=== PATIENT | male | born 1940 | race Caucasian/White ===

== ENCOUNTER → 2016-06-21 | Outpatient (CLI) | payer OTHER, BC ==
[~2016-06-21] MED LIST: ALL300 PO; ASPEC325 PO; ATEN50TA PO; ATOR10TA88 PO; CALCTAB5 PO; COEN100C3; DOCU100C PO; GABA1CAP PO; GLC/500 PO; ISOS60TA25 PO; KLN1X PO; OMEP20TA PO; OXYC-106 PO; POLYDRO6 OPL; PRD/1 PO; SYN25 PO; TERA5CAP PO; [UNRECOGNIZED DRUG - SUPPLY] OPR
--- NOTE | 2016-06-21 11:24 | DIAGNOSTIC IMAGING REPORT ---
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 Maximum linear dimension of the right leg from the superior aspect of the wall of the right femoral prosthetic to the right ankle is 94.6 cm. A: Linear dimension of the left leg is 92.6 cm. Differential is 2 cm with left leg shorter than that of the right. Bulk of the differential is an femoral length discrepancy area in IMPRESSION: 1. leg length discrepancy with the left leg shorter than the right x 2 cm. 2. The bulk of the differential length is localized to the femur as discussed Electronically signed by: Eyad Loco M.D. 06/21/2016 11:22 AM Dictated Date/Time: 06/21/2016 11:17 AM
== END ==
LOC: C.RADBC 10:54
PROVIDERS: ATTEND Anesthesiology
DX: M21.70 Unequal limb length (acquired), unspecified site (principal); M54.5 Low back pain

== ENCOUNTER → 2016-08-24 | Outpatient (CLI) | payer OTHER, BC ==
[~2016-08-24] MED LIST changes: +ATOR10TA82 PO; -ATOR10TA88 PO; -PRD/1 PO
[2016-08-24 13:08] LABS: BASO % 1.5 %; BASO ABS # 0.11 K/uL (0-0.2); COMPLETE YES; EOS % 2.8 %; IG% 0.3 %; LYMPH % 36.8 %; LYMPH ABS # 2.77 K/uL (1.2-3.4); MEAN CELL VOLUME 100.3 fL (80-100); MEAN CORPUSCULAR HEMOGLOBIN 31.6 pg (25-34); MEAN CORPUSCULAR HGB CONC 31.5 g/dl (32-36); MEAN PLATELET VOLUME 10.5 fL (7.4-10.4); MONO % 12.7 %; NEUT % 45.9 %; PLATELET COUNT 161 K/uL (130-400); RED BLOOD COUNT 3.89 M/uL (4.7-6.1); WHITE BLOOD COUNT 7.53 K/uL (4.8-10.8)
[2016-08-24 13:37] LABS: ESTIMATED AVERAGE GLUCOSE 128 mg/dl; HA1C FLAG Normal (Normal)
[2016-08-24 13:40] LABS: ALT/SGPT 32 U/L (12-78); AST/SGOT 17 U/L (15-37); BLOOD UREA NITROGEN 12 mg/dl (7-18); BUN/CREATININE RATIO 14.7 (10-20); CALCIUM 9.3 mg/dl (8.5-10.1); CARBON DIOXIDE 30 mmol/L (21-32); CHLORIDE 106 mmol/L (98-107); CHOLESTEROL 144 mg/dl (0-200); GLUCOSE 120 mg/dl (70-99); POTASSIUM 4.2 mmol/L (3.5-5.1); SODIUM 142 mmol/L (136-145); TRIGLYCERIDES 131 mg/dl (0-150); URIC ACID 4.6 mg/dl (2.6-7.2); VERY LOW DENSITY LIPOPROT CALC 26 mg/dl
[2016-08-24 13:47] LABS: ALB/GLOB RATIO 1.2 (0.9-2); ALKALINE PHOSPHATASE 70 U/L (45-117); CHOLESTEROL/HDL RATIO 3.5; HDL CHOLESTEROL 41 mg/dl; LDL CHOLESTEROL CALCULATED 77 mg/dl
[2016-08-24 14:09] LABS: RATIO 175.6 mcg/mg (0-30.0)
== END | disposition home or self-care (01) ==
LOC: C.LABMFLN 08:10
PROVIDERS: ATTEND Family Medicine
DX: E11.9 Type 2 diabetes mellitus without complications (principal); M10.9 Gout, unspecified; E78.5 Hyperlipidemia, unspecified; E03.9 Hypothyroidism, unspecified

== ENCOUNTER → 2016-09-02 | Outpatient (CLI) | payer OTHER, BC | END | disposition home or self-care (01) | LOC: C.LABMFLN 10:58 | PROVIDERS: ATTEND Orthopaedic Surgery Adult Reconstructive Orthopaedic Surgery | DX: M25.551 Pain in right hip (principal) ==

== ENCOUNTER → 2017-03-31 | Outpatient (CLI) | payer OTHER, BC ==
[2017-03-31 12:58] LABS: BASO % 2.1 %; BASO ABS # 0.12 K/uL (0-0.2); COMPLETE YES; EOS % 4.4 %; HEMATOCRIT 39.1 % (42-52); IG% 0.3 %; LYMPH % 27.9 %; LYMPH ABS # 1.63 K/uL (1.2-3.4); MEAN CELL VOLUME 105.7 fL (80-100); MEAN CORPUSCULAR HEMOGLOBIN 33.5 pg (25-34); MEAN CORPUSCULAR HGB CONC 31.7 g/dl (32-36); MEAN PLATELET VOLUME 10.5 fL (7.4-10.4); MONO % 13.3 %; PLATELET COUNT 131 K/uL (130-400); WHITE BLOOD COUNT 5.85 K/uL (4.8-10.8)
[2017-03-31 13:28] LABS: BLOOD UREA NITROGEN 12 mg/dl (7-18); BUN/CREATININE RATIO 17.4 (10-20); CALCIUM 8.7 mg/dl (8.5-10.1); CARBON DIOXIDE 27 mmol/L (21-32); CHLORIDE 107 mmol/L (98-107); GLUCOSE 126 mg/dl (70-99); POTASSIUM 4.1 mmol/L (3.5-5.1); SODIUM 141 mmol/L (136-145)
[2017-03-31 13:36] LABS: ESTIMATED AVERAGE GLUCOSE 126 mg/dl; HA1C FLAG Normal (Normal)
[2017-03-31 13:39] LABS: PHOSPHORUS 2.8 mg/dl (2.5-4.9)
[2017-03-31 14:11] LABS: LYME DISEASE AB IGG NEG (NEG); LYME DISEASE AB IGM NEG (NEG)
== END | disposition home or self-care (01) ==
LOC: C.LABMFLN 07:49
PROVIDERS: ATTEND Family Medicine
DX: D64.9 Anemia, unspecified (principal); E11.9 Type 2 diabetes mellitus without complications; M35.3 Polymyalgia rheumatica; M25.50 Pain in unspecified joint; M79.1 Myalgia; E03.9 Hypothyroidism, unspecified

== ENCOUNTER → 2017-04-06 | Outpatient (CLI) | payer OTHER, BC | END | disposition home or self-care (01) | LOC: C.LABMFLN 13:11 | PROVIDERS: ATTEND Family Medicine | DX: D53.9 Nutritional anemia, unspecified (principal) ==

== ENCOUNTER → 2017-08-22 | Outpatient (CLI) | payer OTHER, BC ==
[~2017-08-22] MED LIST changes: +GABA100C13 PO; -GABA1CAP PO
[2017-08-22 15:57] LABS: ALBUMIN 3.8 gm/dl (3.4-5.0); ALT/SGPT 36 U/L (12-78); BLOOD UREA NITROGEN 13 mg/dl (7-18); CARBON DIOXIDE 27 mmol/L (21-32); CHOLESTEROL 134 mg/dl (0-200); CREATININE 0.91 mg/dl (0.60-1.40); GLUCOSE 132 mg/dl (70-99); POTASSIUM 4.1 mmol/L (3.5-5.1); SODIUM 139 mmol/L (136-145); URIC ACID 4.5 mg/dl (2.6-7.2)
[2017-08-22 16:00] LABS: ALKALINE PHOSPHATASE 58 U/L (45-117); AST/SGOT 31 U/L (15-37); LDL CHOLESTEROL CALCULATED 72 mg/dl; TOTAL PROTEIN 7.2 gm/dl (6.4-8.2)
== END | disposition home or self-care (01) ==
LOC: C.LABMFLN 10:50
PROVIDERS: ATTEND Family Medicine
DX: M35.3 Polymyalgia rheumatica (principal); E11.9 Type 2 diabetes mellitus without complications; E78.5 Hyperlipidemia, unspecified; M10.9 Gout, unspecified